=== PATIENT | male | born 1965 | race Caucasian/White ===

== ENCOUNTER 2019-04-22 06:11 | Inpatient (IN) | payer BC, OTHER ==
[~2019-04-22] VITALS: Ht 170.2 cm; Wt 88.4 kg
[2019-04-22 06:12] VITALS: BP 133/91
[2019-04-22] MEDS ORDERED: LIPITOR40 MG PO (06:24)
[2019-04-22 07:09] VITALS: BP 138/79
[2019-04-22 08:48] VITALS: BP 114/75
[2019-04-22 11:33] VITALS: BP 116/76
[2019-04-22 15:33] VITALS: BP 117/67
--- NOTE | 2019-04-22 17:10 | NUR ---
ASSUMED CARE OF PATIENT AT 0900 NEW ADMIT FROM THE INTERNET APPLICATION DEVELOPER. PATIENT ON BEDREST FOR THREE HOURS. POST CATH VITALS COMPLETED AND REGULAR RIGHT GROIN SITE CHECKS. DOCUMENTATION ON POST PROCEDURE VITALS SHEET AND FILED IN THE CHART. PATIENT'S FAMILY AT THE BEDSIDE. PATIENT DENIES ANY CHEST PAIN. PATIENT AMBULATED TO THE RESTROOM AFTER BEDREST WITHOUT ANY DIFFICULTY AND ASKED TO HAVE ASSISTANCE EACH TIME GETTING OUT OF BED. PATIENT COMPLIANT. PATIENT SIGNED TELE AND FALL FORM. ASSESSMENTS COMPLETED. PATIENT HAD THREE RUNS OF VTACH IN A 2 HOUR TIME FRAME. INCIDENT CALLED TO IGNACIO CASTELAN NP. WILL CONTINUE TO MONITOR AND NOTIFY IF CONTINUES. PATIENT'S RIGHT GROIN SITE CONTINUES TO BE FREE OF ANY DRAINAGE, BLOOD, HEMATOMA OR EDEMA. DENIES TENDERNESS. PATIENT TO CONTINUE WITH POC.
[2019-04-22 19:39] VITALS: BP 105/71
--- NOTE | 2019-04-23 02:26 | NUR ---
ASSESSMENTS CHARTED. PATIENT HAD ONE 9 BEAT RUN OF DotGT. SLEPT THROUGH IT. DENIES PAIN. RIGHT GROIN SITE REMAINS CLEAN, DRY, INTACT, SOFT. PATIENT UP AT YONIS IN ROOM, NOT TAKING PAIN MEDS, STEADY ON FEET. PLAN OF CARE IS TO GO HOME IN THE MORNING.
[2019-04-23 04:59] LABS: HEMATOCRIT 44.5 % (42.0-52.0); HEMOGLOBIN 14.8 gm/dL (14.0-18.0); MCH 27.6 pg (26.0-34.0); MCHC 33.2 g/dL (28.0-37.0); RBC 5.36 mil/uL (4.50-6.00); RDW 14.3 % (10.5-14.5); WBC 9.5 thou/uL (4.0-11.0)
[2019-04-23 05:24] LABS: ALBUMIN 3.7 g/dL (3.4-5.0); ANION GAP 9 mmol/L (7-16); BUN 13 mg/dL (7-18); CALCIUM 8.7 mg/dL (8.5-10.1); CHLORIDE 105 mmol/L (98-107); CHOLESTEROL 143 mg/dL (<200); CO2 25 mmol/L (21-32); CREATININE 0.9 mg/dL (0.7-1.3); GLUCOSE 105 mg/dL (74-106); HDL CHOLESTEROL 36 mg/dL (>40); LDL CHOLESTEROL 89 mg/dL (<100); POTASSIUM 4.2 mmol/L (3.5-5.1); SGOT 150 U/L (15-37); SGPT 63 U/L (30-65); SODIUM 139 mmol/L (136-145); TOTAL BILIRUBIN 1.9 mg/dL (<0.1-1.0); TOTAL PROTEIN 6.4 g/dL (6.4-8.2); TRIGLYCERIDE 91 mg/dL (<150); VLDL 18 mg/dL (<40)
[2019-04-23 05:27] VITALS: BP 120/65
[2019-04-23 05:33] LABS: SERUM ASSESSMENT Clear; TROPONIN-I 40.62 ng/mL (<0.06)
[2019-04-23] MEDS ORDERED: ASPIRIN325 PO (07:52)
[2019-04-23] MEDS ORDERED: EFFIENT10 MG PO (07:52)
[2019-04-23] MEDS ORDERED: METOPROLOL SUCC25 M1 PO (07:52)
[2019-04-23] MEDS ORDERED: LIPITOR80 MG PO (07:52)
[2019-04-23] MEDS ORDERED: COZAAR 25 MG TA25 M1 PO (07:52)
[2019-04-23 07:57] VITALS: BP 129/71
--- NOTE | 2019-04-23 08:27 | 2DMMODE ---
[facility] [address] [place] [address] 2 D/M-MODE ECHOCARDIOGRAM Name: DON COSTELLO Room #: 206-P [facility] IN ..#: [id number] ������������� Admission: 04/22/19 ������������� Attend Phys: Rui Hernandez, Discharge: ��� ������������� ��� Date of : 65 Date of Service: 04/23/19 0827 �� Report #: [id number] �������� ��������������������������������������������[id number] THIS REPORT FOR: //name// APPROVED REPORT Study performed: 04/23/2019 07:10:10 EXAM: Comprehensive 2D, Doppler, and color-flow Echocardiogram Patient Location: Out-Patient Room #: 206 Status: routine BSA: 2.07 HR: 59 bpm BP: 120/65 mmHg Rhythm: NSR Other Information Study Quality: Good Indications STEMI, status post PCI. Hx: HLD 2D Dimensions RVDd: 34.14 mm IVSd: 12.12 (7-11mm) LVOT Diam: 22.60 (18-24mm) LVDd: 51.86 mm PWd: 12.02 (7-11mm) Ascending Ao: 34.35 (22-36mm) LVDs: 36.43 (25-40mm) Aortic Root: 36.99 mm Volumes Left Atrial Volume (Systole) Single Plane 4CH: 43.40 mL Single Plane 2CH: 74.47 mL LA ESV Index: 29.00 mL/m2 Aortic Valve AoV Peak Rdoo.: 1.14 m/s AO Peak Gr.: 5.17 mmHg LVOT Max P.93 mmHg LVOT Max V: 0.99 m/s ADRY Vmax: 3.49 cm2 Mitral Valve E/A Ratio: 1.2 MV Decel. Time: 232.37 ms MV E Max Rodo.: 0.81 m/s [facility] [place] [address] 2 D/M-MODE ECHOCARDIOGRAM Name: DON COSTELLO Room #: 206-[facility].#: [id number] ������������� Admission: 04/22/19 ������������� Attend Phys: Rui Hernandez, Discharge: ��� ������������� ��� Date of : 65 Date of Service: 04/23/19 0827 �� Report #: [id number] �������� ��������������������������������������������[id number] MV A Rodo.: 0.66 m/s MV PHT: 67.39 ms IVRT: 110.73 ms Pulmonary Valve PV Peak Rodo.: 0.90 m/s PV Peak Gr.: 3.27 mmHg Pulmonary Vein P Vein S: 0.50 m/s P Vein A: 0.31 m/s P Vein D: 0.37 m/s P Vein A Dur.: 101.5 msec P Vein S/D Ratio: 1.35 Tricuspid Valve TR Peak Rodo.: 2.09 m/s RAP Estimate: 5.00 mmHg TR Peak Gr.: 17.41 mmHg PA Pressure: 22.00 mmHg Left Ventricle The left ventricle is normal size. Regional wall motion abnormalities are noted. Borderline concentric left ventricular hypertrophy. Left ventricular ejection fraction is mildly decreased. Lateral wall hypokinesis LVEF is 45-50%. Moderate diastolic dysfunction is present (pseudonormal filling). Right Ventricle The right ventricle is normal size. The right ventricular systolic function is normal. Atria The left atrium size is normal. The right atrium size is normal. Aortic Valve Aortic valve is trileaflet; minimally sclerotic Trace aortic regurgitation. There is no aortic valvular stenosis. Mitral Valve Mitral valve leaflets are mildly calcified. Mild annular calcification. Mild to moderate mitral regurgitation. Tricuspid Valve The tricuspid valve is normal in structure. Trace to mild tricuspid regurgitation. Estimated PAP is 20-25mmHg. Pulmonic Valve The pulmonary valve is normal in structure. Trace pulmonic [address] [address] 2 D/M-MODE ECHOCARDIOGRAM Name: COSTELLODON Room #: 206-P [facility] IN [facility]#: [id number] ������������� Admission: 04/22/19 ������������� Attend Phys: Rui Hernandez, Discharge: ��� ������������� ��� Date of : 65 Date of Service: 04/23/19 0827 �� Report #: [id number] �������� ��������������������������������������������[id number] regurgitation. Great Vessels The aortic root is normal in size. The ascending aorta is normal in size. IVC is normal in size and collapses >50% with inspiration. Pericardium There is no pericardial effusion. <Conclusion> Left ventricular ejection fraction is mildly decreased. Lateral wall hypokinesis LVEF is 45-50%. Moderate diastolic dysfunction. Aortic valve is trileaflet; minimally sclerotic, no stenosis. Trace aortic regurgitation. Mitral valve leaflets are mildly calcified. Mild annular calcification. Mild to moderate mitral regurgitation. Trace to mild tricuspid regurgitation. Estimated pulmonary artery pressure of 20-25mmHg. There is no pericardial effusion. ��������������������������������������������� <ELECTRONICALLY SIGNED> ���������������������������������������� By: Jimmie Bray MD, [facility] ��������������������������������������������� 04/23/19826 6 6 Jimmie Bray MD, FAC /INF
--- NOTE | 2019-04-23 08:32 | EKG ---
[place] [address] [place] [address] ELECTROCARDIOGRAM REPORT Name: COSTELLODON K Room #: 206-P ADM IN M.R.#: [id number] ������������������ Admission: 04/22/19 ������������������ Attend Phys: Rui Hernandez MD, Discharge: ������������������ Date of : 65 Report #: [id number] ����������������������������������������������������������������� [id number] THIS REPORT FOR: //name// [facility] ED Test Date: 2019-04-22 Test Time: 06:14:03 Pat Name: DON COSTELLO Department: Room: Gender: M Dental Sales Representative: MARKOS : 1965 Requested By: Order Number: [id number] MD: Jimmie Bray Measurements Intervals [place] Rate: 52 P: 22 VT: 165 QRS: -25 QRSD: 104 T: 79 QT: 393 QTc: 366 Interpretive Statements Sinus rhythm Borderline left axis deviation Poor R wave progression ST elevation, consider inferior injury No previous ECG available for comparison Electronically Signed On 04-23-2019 8:32:25 CDT by Jimmie Bray [email or web address] ��������������������������������������������� <ELECTRONICALLY SIGNED> ���������������������������������������� By: Jimmie Bray MD, [facility] ��������������������������������������������� 04/23/19 0832 0614 3 Jimmie Bray MD, FACC /EPI
--- NOTE | 2019-04-23 09:23 | EKG ---
[place] [address] [facility] [place] [address] ELECTROCARDIOGRAM REPORT Name: UMESH COSTELLOKELSEY Saenz Room #: 206-P ADM IN M.R.#: [id number] ������������������ Admission: 04/22/19 ������������������ Attend Phys: Rui Hernandez MD, Discharge: ������������������ Date of : 65 Report #: [id number] ����������������������������������������������������������������� [id number] THIS REPORT FOR: //name// [facility] Test Date: 2019-04-23 Test Time: 07:51:39 Pat Name: DON COSTELLO Department: Room: 206 P Gender: M Track Walker: MONROE : 1965 Requested By: Rui Hernandez Order Number: [id number] MD: Jimmie Bray Measurements Intervals [place] Rate: 60 P: 14 [place]: 163 QRS: -43 QRSD: 96 T: 60 QT: 388 QTc: 388 Interpretive Statements Sinus rhythm Left anterior fascicular block No previous ECG available for comparison Electronically Signed On 04-23-2019 9:23:36 CDT by Jimmie Bray [email or web address] ��������������������������������������������� <ELECTRONICALLY SIGNED> ���������������������������������������� By: Jimmie Bray MD, [facility] ��������������������������������������������� 04/23/19 0923 0751 0751 Jimmie Bray MD, FACC /EPI
[2019-04-23 11:48] VITALS: BP 104/72
[2019-04-23 15:26] VITALS: BP 114/67
[2019-04-23 20:11] VITALS: BP 125/64
[2019-04-24 04:07] VITALS: BP 103/71
--- NOTE | 2019-04-24 06:11 | NUR ---
[facility]. PT/VITALS STABLE/ DENEIS ANY PAIN. UP AD YONIS. FAMILY BY BEDSIDE. ASSESSMENT CHARTED. PROGRESING WELL WITH POC. PLAN IS POSSIBLE DISCHARGE TODAY. ADEQUATE REST NOTED. WILL CONTINUE TO MONITOR AND FOLLOW WITH POC
[2019-04-24 07:50] VITALS: BP 128/80
[2019-04-24 10:16] VITALS: BP 128/80
--- NOTE | 2019-04-24 10:33 | NUR ---
DR. ELMORE HERE, DISCHARGING PATIENT. DISCHARGE INSTRUCTIONS GIVEN. TELE AND SALINE LOCKS DISCONTINUED. HOME WITH SELF CARE.
--- NOTE | 2019-04-26 08:50 | EKG ---
[place] [address] [facility] [place] [address] ELECTROCARDIOGRAM REPORT Name: DON COSTELLO Room #: 206-P [facility] IN M.R.#: [id number] ������������������ Admission: 04/22/19 ������������������ Attend Phys: Rui Hernandez MD, Discharge: 04/24/19 ������������������ Date of : 65 Report #: [id number] ����������������������������������������������������������������� [id number] THIS REPORT FOR: //name// [facility] Test Date: 2019-04-24 Test Time: 10:19:23 Pat Name: DON COSTELLO Department: Room: 206 P Gender: M Soda Worker: BRANT : 1965 Requested By: Amy Gaxiola Order Number: [id number] MD: Jimmie Bray Measurements Intervals [place] Rate: 76 P: 19 [place]: 162 QRS: -56 QRSD: 101 T: 134 QT: 386 QTc: 435 Interpretive Statements Sinus rhythm Left anterior fascicular block Poor R wave progression Abnormal T, consider ischemia, lateral leads Compared to ECG 04/23/2019 07:51:39 T-wave abnormality is now present Electronically Signed On 04-26-2019 8:50:40 CDT by Jimmie Bray [email or web address] ��������������������������������������������� <ELECTRONICALLY SIGNED> ���������������������������������������� By: Jimmie Bray MD, [facility] ��������������������������������������������� 04/26/19 0850 1019 1019 Jimmie Bray MD, [facility] /EPI
--- NOTE | 2019-04-26 16:17 | CATHLAB ---
[facility] [place] [place] [address] INVASIVE PROCEDURE REPORT Name: DON COSTELLO Room #: 206-P [facility] IN ..#: [id number] ������������� Admission: 04/22/19 ������������� Attend Phys: Rui Hernandez, Discharge: ��� 04/24/19 ������������� ��� Date of : 65 Date of Service: 04/26/19 1616 �� Report #: [id number] �������� ��������������������������������������������[id number] THIS REPORT FOR: //name// APPROVED REPORT Study performed: 04/22/2019 07:18:32 Patient Details Patient Status: In-Patient Room #: The patient is a 53 year-old male Event Personnel Rui Hernandez Psychotherapist Counselor, Daysi Dunn RN RN, Lizette Mendoza Monitor, Adrienne Mtz RTR, POLYGRAPH OPERATOR Scrub, Peterson Harry RN RN, Eleazar Noonan RN, Venancio Moreno RTR Scrub Procedures Performed Art Access - R femoral artery* 41964 Initial Mod Sed Same Phys/QHP Gr5y 536646 97367 Mod Sed Same Phys/QHP Ea 585085 Left Heart Cath w/or w/o Coronaries 8975978 [facility] Aortogram Abdominal Peripheral Angio 532577 LINCOLN Revasc AMI Total/Sub Single CIRC C9606 AMIREVSING Hemostasis w/ Mynx Indication STEMI Procedure Narrative The patient was brought emergently to the Cardiac Catheterization Laboratory and was prepped and draped in a sterile manner. The Right Groin^ was infiltrated with 1% Lidocaine subcutaneous anesthesia. A PINNACLE 6FR Sheath #[id number] sheath was inserted into the RFA^. Coronary angiography was performed using coronary diagnostic catheters. The right coronary system was accessed and visualized with a JR 4 catheter. The left coronary system was accessed and visualized with a JL 4 catheter. The left ventricle was accessed and visualized with a Pigtail catheter. Left ventriculogram was performed in PEGUERO projection. An aortogram of the abdominal aorta was performed. Closure device was deployed with a 6 Fr Mynx. The patient tolerated the procedure well and there were no complications associated with the procedure. There was no hematoma. Intraoperative Conscious Sedation Sedation start time: 07:21 Case end Time: 08:19 Fentanyl 50 mcg Versed 1.5 mg [address] [place] [address] INVASIVE PROCEDURE REPORT Name: DON COSTELLO Room #: 206-P [facility]#: [id number] ������������� Admission: 04/22/19 ������������� Attend Phys: Rui Hernandez, Discharge: ��� 04/24/19 ������������� ��� Date of : 65 Date of Service: 04/26/19 1616 �� Report #: [id number] �������� ��������������������������������������������[id number] Fluoro Time: 6.30 minutes Dose: DAP 39743.00 cGycm2 1584 mGy Contrast Type and Amount: Visipaque 200 ml Hemodynamics The aortic pressure is 119/64 mmHg with a mean of 81 mmHg. The left ventricular pressure is 115/6 mmHg with a mean of mmHg. The left ventricular end diastolic pressure is 20 mmHg. PCI Technique Lesion Percutaneous coronary intervention was performed on the second obtuse marginal branch segment. A LAUNCHER 6FR EBU 3.5 #[id number] Guide Catheter was used to engage the ostium. A Luge Wire .014 x 182CM #[id number] Interventional Guidewire was used to cross the lesion. BALLOON DILATION A Balloon catheter Sprinter OTW 2.75 x 12 #[id number] was inserted and inflated up to 10.00atm for 18seconds. Additional Inflation: 10.00atm for 13seconds. Additional Inflation: 12.00atm for 24seconds. STENT DEPLOYMENT A drug-eluting stent XIENCE ANNABELLA RX 3.0 X 15 #[id number] was inserted and inflated up to 16.00atm for 37seconds. POST STENT DEPLOYMENT BALLOON DILATION A Balloon catheter TREK NC OTW 3.25 X 12 #[id number] was inserted and inflated up to 20.00atm for 30seconds. Additional Inflation: 22.00atm for 26seconds. Conclusion #1 successful PTCA stent of a subtotaled proximal large second OM branch (acute infarct vessel) placement of a 30 by 15 Annabella drug-eluting stent postdilated 3.5 mm yielding ANNA grade 3 flow #2 left main with mild disease giving rise to LAD and this large circumflex OM system #3 LAD with a ostial 60% lesion and then a proximal mid vessel 80% eccentric lesion this is giving rise to the diagonal branch which appears to be relatively uninvolved and the remainder of the LAD is widely patent as it wraps the apex. #4 large dominant right coronary with mild irregularities there is no significant occlusive disease a 30% ostial RCA and 30% ostial PDA lesions #5 normal left ventricular size and subtle inferior lateral hypo-kinesis EF 50% range [facility] [address] [address] INVASIVE PROCEDURE REPORT Name: DON COSTELLO Room #: 206-P [facility] IN M.R.#: [id number] ������������� Admission: 04/22/19 ������������� Attend Phys: Rui Hernandez, Discharge: ��� 04/24/19 ������������� ��� Date of : 65 Date of Service: 04/26/191615 �� Report #: [id number] �������� ��������������������������������������������[id number] #6 abdominal aortogram reveals an intact abdominal aorta no aneurysm formation and renal arteries are widely patent Indications and plan: Continue aggressive risk factor modification. Dual antiplatelet therapy to continue to the CCU to follow post stent protocol. Anticipate LAD intervention at later date. Culprit vessel only intervention today. ��������������������������������������������� <ELECTRONICALLY SIGNED> ���������������������������������������� By: Rui Hernandez MD, FACC ��������������������������������������������� 04/26/191615 15 15 Rui Hernandez MD, FACC /INF
== END 2019-04-24 10:39 | disposition home or self-care (01) | DRG 247 ==
LOC: ER 06:11 → 2N 06:59 → EROBS 06:59 → 2N 06:59 → EROBS 07:11 → 2N 08:39
PROVIDERS: ADMIT Internal Medicine Cardiovascular Disease
DX: I21.19 ST elevation (STEMI) myocardial infarction involving other coronary artery of inferior wall (principal); I47.2 Ventricular tachycardia; E78.5 Hyperlipidemia, unspecified; Z79.899 Other long term (current) drug therapy; Z82.49 Family history of ischemic heart disease and other diseases of the circulatory system
CPT/HCPCS: 10081

== ENCOUNTER 2019-05-27 06:23 | Observation (INO) | payer BC, OTHER ==
[~2019-05-27] VITALS: Ht 170.2 cm; Wt 92.5 kg
[~2019-05-27 06:23] MED LIST: ASPIRIN325 PO; COZAAR 25 MG TA25 M1 PO; EFFIENT10 MG PO; LIPITOR40 MG PO; LIPITOR80 MG PO; METOPROLOL SUCC25 M1 PO
[2019-05-27 07:06] VITALS: BP 129/74
[2019-05-27 07:19] LABS: HEMATOCRIT 41.5 % (42.0-52.0); MCH 27.3 pg (26.0-34.0); MCHC 33.6 g/dL (28.0-37.0); MCV 81.1 fL (80.0-100.0); RBC 5.12 mil/uL (4.50-6.00); RDW 14.1 % (10.5-14.5); WBC 6.6 thou/uL (4.0-11.0)
[2019-05-27 07:32] LABS: POTASSIUM 4.3 mmol/L (3.5-5.1)
[2019-05-27 07:33] LABS: APTT 32.1 Seconds (24.5-32.8); PROTIME 10.7 Seconds (9.3-11.4)
--- NOTE | 2019-05-27 08:40 | EKG ---
[place] [address] [facility] [facility] [place] [address] ELECTROCARDIOGRAM REPORT Name: DON COSTELLO [id number] Admission: 05/27/19 Attend Phys: Rui Hernandez MD, Discharge: Date of : 65 Report #: [id number] THIS REPORT FOR: //name// [facility] Test Date: 2019-05-27 Test Time: 07:16:14 Pat Name: DON COSTELLO Department: Room: Gender: Contact Lens Edge Buffer: Jessika HUTCHINS : 1965 Requested By: Rui Hernandez Order Number: [id number] MD: Jimmie Bray Measurements Intervals [place] Rate: 68 P: 16 [place]: 167 QRS: -44 QRSD: 103 T: 23 QT: 392 QTc: 417 Interpretive Statements Sinus rhythm Left axis deviation Borderline T wave abnormalities Compared to ECG 04/24/2019 10:19:23 No significant change was found Electronically Signed On 05-27-2019 8:40:39 CDT by Jimmie Bray [email or web address] <ELECTRONICALLY SIGNED> By: Jimmie Bray MD, [facility] 05/27/19 0840 5 5 Jimmie Bray MD, [facility] /EPI
[2019-05-27 10:45] VITALS: BP 120/73
--- NOTE | 2019-05-27 13:50 | CATHLAB ---
[facility] [address] [place] [address] INVASIVE PROCEDURE REPORT Name: PRAVINDON ZAZUETA Room #: 200-I ADM IN .R.#: [id number] Admission: 05/27/19 Attend Phys: Rui Hernandez, Discharge: Date of : 65 Date of Service: 05/27/19 1350 Report #: [id number] THIS REPORT FOR: //name// APPROVED REPORT Study performed: 05/27/2019 09:02:14 Patient Details Patient Status: Out-Patient Room #: The patient is a 53 year-old male Event Personnel Rui Hernandez Auto Damage Adjuster, Mackenzie Spence RN RN, Daniel Story RTR Monitor, Tremaine Espinoza RTR Scrub, Heather Meza RTR Scrub, Lizette Mendoza Monitor, Micheal Bryan RN RN, Mackenzie Spence RN RN, Daniel Story RTR Monitor Procedures Performed Art Access - R femoral artery* 35729 Initial Mod Sed Same Phys/QHP Gr5y 538468 89787 Mod Sed Same Phys/QHP Ea 760151 LINCOLN Place w/wo Plasty Single LAD 533479 Hemostasis w/ Mynx Indication Chest pain Procedure Narrative The RFG^ was infiltrated with 1% Lidocaine subcutaneous anesthesia. A PINNACLE 6FR Sheath #[id number] sheath was inserted into the RFA^. Coronary angiography was performed using coronary diagnostic catheters. The left coronary system was accessed and visualized with a LAUNCHER 6FR EBU 3.5 #[id number] catheter. Closure device was deployed with a Fr MYNX CONTROL 6F/7F #[id number]. Hemostasis was obtained with manual pressure following sheath removal without any complications. The patient tolerated the procedure well and there were no complications associated with the procedure. There was no hematoma. Intraoperative Conscious Sedation Sedation start time: 9:21 Case end Time: 10:28 Fentanyl 50 mcg Versed 1 mg Fluoro Time: 6.17 minutes Dose: DAP 7462.00 cGycm2 1095 mGy Contrast Type and Amount: Omnipaque 105 ml [place] [address] [place] [address] INVASIVE PROCEDURE REPORT Name: COSTELLODON ZAZUETA Room #: 200-I [facility] IN ..#: [id number] Admission: 05/27/19 Attend Phys: Rui Hernandez, Discharge: Date of : 65 Date of Service: 05/27/19 1350 Report #: [id number] Hemodynamics The aortic pressure is 112/51 mmHg with a mean of 79 mmHg. PCI Technique Lesion Percutaneous coronary intervention was performed on the mid left anterior descending artery segment. A LAUNCHER 6FR EBU 3.5 #[id number] Guide Catheter was used to engage the ostium. A Luge Wire .014 x 182CM #[id number] Interventional Guidewire was used to cross the lesion. BALLOON DILATION A Balloon catheter Sprinter OTW 2.5 x 12 #[id number] was inserted and inflated up to 3.00atm for 13seconds. Additional Inflation: 10.00atm for 20seconds. Additional Inflation: 10.00atm for 32seconds. STENT DEPLOYMENT A drug-eluting stent XIENCE ANNABELLA RX 3.0 X 12 #[id number] was inserted and inflated up to 15.00atm for 36seconds. Conclusion #1 successful PTCA stent of the proximal mid LAD 80-90% eccentric lesion to 0% placement of a 30 by 12 Annabella drug-eluting stent. Diagonal branch was jailed with moderate narrowing of the ostium. No flow limitation. Excellent result in the LAD. #2 the left main is moderately diseased and will follow this. Ostial LAD 50-60% lesion will also follow. #3 circumflex OM was a prior infarct vessel this stent remains widely patent with brisk flow. Recommendations and plan: Continue aggressive risk factor modification. Dual antiplatelet therapy one year. Transfer to CCU in stable condition follow post stent protocol. <ELECTRONICALLY SIGNED> By: Rui Hernandez MD, FACC 05/27/19 1350 135 1350 Rui Hernandez MD, FACC /INF
--- NOTE | 2019-05-27 14:41 | NUR ---
53 YO MALE ADMITTED TO 200 FROM UPPER STITCHER. R GROIN DRESSING CDI, POST PROCEDURE VITALS PERFORMED, NO COMPLAINTS OF PAIN, WILL CONTINUE TO MONITOR
[2019-05-27 15:10] VITALS: BP 116/77
[2019-05-27 20:11] VITALS: BP 123/75
[2019-05-28 00:01] VITALS: BP 133/63
--- NOTE | 2019-05-28 03:42 | NUR ---
ASSUMED CARE OF PATIENT AT 1900. VSS, AFEBRILE. RESTING IN BED. DENIES PAIN, SOA OR N/V. GROIN SITE C/D/I. AT BEDSIDE. AM LABS AND EKG ORDERS OBTAINED. PROGRESSING WELL TOWARDS POC GOALS.
[2019-05-28 04:07] VITALS: BP 129/76
[2019-05-28 05:46] LABS: CALCIUM 8.9 mg/dL (8.5-10.1); CREATININE 0.9 mg/dL (0.7-1.3); POTASSIUM 4.1 mmol/L (3.5-5.1)
[2019-05-28 07:20] VITALS: BP 119/81
[2019-05-28 10:24] VITALS: BP 119/81
--- NOTE | 2019-05-28 10:55 | NUR ---
PATIENT CARE ASSUMED, ASSESSMENT CHARTED, VSS, ALERT AND ORIENTED X4, R GROIN DSG, CDI, NO COMPLAINTS OF PAIN. PATIENT DISCHARGED TO HOME, DISCHARGE INSTRUCTIONS GIVEN, STATED UNDERSTANDING. ESCORTED OUT OF HOSPITAL BY WHEELCHAIR ACCOMPANIED BY SPOUSE.
--- NOTE | 2019-06-01 07:35 | EKG ---
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: [facility] : 1965 Requested By: Rui Hernandez Order Number: [id number] MD: Jimmie Bray Measurements Intervals [place] Rate: 54 P: 17 [place]: 160 QRS: -43 QRSD: 102 T: 35 QT: 419 QTc: 398 Interpretive Statements Sinus bradycardia Left anterior fascicular block T abnormalities, lateral leads Compared to ECG 05/27/2019 07:16:14 Lateral T wave abnormality is more pronounced Electronically Signed On 06-01-2019 7:34:48 CDT by Jimmie Bray [email or web address] <ELECTRONICALLY SIGNED> By: Jimmie Bray MD, [facility] 06/01/19 0734 8 8 Jimmie Bray MD, [facility] /EPI
--- NOTE | 2019-06-02 17:11 | D ---
[facility] [place] [address] DISCHARGE SUMMARY Name: DON COSTELLO Room #: 200-I [facility] Reymundo Capps#: [id number] Admission: 05/27/19 Attend Phys: Rui Hernandez MD, Discharge: 05/28/19 Date of : 65 Report #: [id number] THIS REPORT FOR: //name// CC: Soy Hernandez DATE OF SERVICE: 05/28/2019 HOSPITAL COURSE: The patient is a 53-year-old male admitted for staged procedure, coronary intervention. An acute infarct last month and had a large circ OM successfully stented. Subsequently brought back for an 80-90% proximal mid LAD lesion. This was successfully stented with a 3.0 x 12 Sugey medicated stent, up to 3.1 mm. He tolerated this well. Did long term a diagonal branch that was moderate in size, but it remained patent with some impingement on the ostium, but brisk flow noted. The prior circ OM system was widely patent in the previously placed stent. His creatinine is 1.9. Troponin 0.09, not significant. He feels well. No chest pain or angina. Groin is stable. He will be discharged to home on his home medications, prasugrel 10, full aspirin for 1 month and then go down to 81 mg after a month. We will continue dual antiplatelet therapy for a year. Metoprolol succinate 25, losartan 25 and atorvastatin 80. He is scheduled to follow up in the office in August. Low fat, low sodium, cholesterol diet. No lifting for 48 hours. No lying in tub, Jacuzzi or morales for a week. No MRI or dental work for 3 months. DISCHARGE DIAGNOSES: 1. Coronary artery disease with successful percutaneous transluminal coronary angioplasty stent medicated of the proximal mid LAD lesion. He has staged procedure, preserved left ventricular function. 2. Hypercholesterolemia. Thank you for asking me to assist in the care of this patient. <ELECTRONICALLY SIGNED> By: Rui Hernandez MD, FACC 06/02/19 [id number] Rui Hernandez MD, FACC /nt
== END 2019-05-28 10:59 | disposition home or self-care (01) ==
LOC: CATH 06:23 → 2N 10:40 → ENTRNSPT 05-28 10:50 → EDTRNSPTSTS 05-28 10:54 → 2N 05-28 10:59
PROVIDERS: ADMIT Internal Medicine Cardiovascular Disease
DX: I25.10 Atherosclerotic heart disease of native coronary artery without angina pectoris (principal); E78.5 Hyperlipidemia, unspecified; I10 Essential (primary) hypertension; E78.00 Pure hypercholesterolemia, unspecified; Z79.82 Long term (current) use of aspirin; Z79.01 Long term (current) use of anticoagulants; Z79.899 Other long term (current) drug therapy

== ENCOUNTER → 2020-06-27 | Outpatient (CLI) | payer BC, OTHER | LOC: SJCVCIMAG 05-18 07:49 | PROVIDERS: ATTEND Internal Medicine Cardiovascular Disease | DX: I08.1 Rheumatic disorders of both mitral and tricuspid valves (principal); I25.10 Atherosclerotic heart disease of native coronary artery without angina pectoris; E78.5 Hyperlipidemia, unspecified; I10 Essential (primary) hypertension; Z98.61 Coronary angioplasty status; Z82.49 Family history of ischemic heart disease and other diseases of the circulatory system ==